=== PATIENT | female | born 2000 | race Caucasian/White ===

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

== ENCOUNTER 2019-09-02 14:01 | Emergency (ER) | payer MEDICAID, SELFPAY ==
[2019-09-02 14:01] VITALS: BP 152/97; PULSE 103; RESP 13; TEMP 36.6; O2SAT 100; BMI 32.2
[2019-09-02 14:26] LABS: Bacteria 0 SEEN /hpf (None Seen); Mucous, Urine 0 SEEN /hpf (<or=2+)
[2019-09-02 14:36] VITALS: BP 152/97; PULSE 92; RESP 16; TEMP 36.6; O2SAT 98
[2019-09-02 14:36] LABS: Color, Urine Yellow (Yellow); Glucose, Dipstick Normal (Normal); Ketone-Dipstick Negative (Negative); Leukocyte Esterase-Dipstick 25 /ul (Negative); Nitrite-Dipstick Negative (Negative); Occult Blood-Urine 250 /ul (Negative); Protein-Dipstick 30 mg/dl (Negative); Urine Bilirubin Dipstick Negative (Negative); Urine Clarity Sl. Cloudy (Clear); Urine Urobilinogen Normal (Normal)
[2019-09-02 14:42] LABS: Absolute Lymphocyte Count 1.83 X10^3/uL (0.83-4.51); Absolute Neutrophil Count 7.6 X10^3/uL (2.0-7.7); Basophil# 0.03 X10^3/uL; Basophil% 0.3 % (0-1); Eosinophil# 0.03 X10^3/uL; Eosinophils% 0.3 % (0-5); Hematocrit 40.4 % (37-47); Lymphocyte # 1.83 X10^3/ul (4.0); Lymphocyte % 18.2 % (19-41); Mean Corp Hgb Conc 32.2 g/dL (32-36); Mean Corpuscular Hgb 30.7 pg (27.0-32.0); Mean Corpuscular Volume 95.3 fL (81-99); Mean Platelet Vol. 9.4 fl (6.2-12.0); Monocyte# 0.57 X10^3/uL; Monocyte% 5.7 % (0-10); NRBC Flagged by Analyzer 0 % (0-5); Neutrophil # 7.58 X10^3/uL (2.7-7.7); Neutrophil % 75.2 % (47-70); Platelet Count 391 K/mm3 (150-450); RBC Distribution Width CV 12.4 % (11.6-14.6); Red Blood Count 4.24 M/mm3 (4.2-5.4); White Blood Count 10.1 K/mm3 (4.4-11.0)
[2019-09-02] MEDS: Ketorolac 30 MG/ML Syringe IV (14:44)
[2019-09-02] MEDS: Ondansetron 4 MG/2 ML Vial IV (14:44)
[2019-09-02] MEDS: 0.9% Normal Saline 1,000 ML 1000 ML IV (14:44)
[2019-09-02 14:45] LABS: Red Blood Cells-Urine 25-50 SEEN /hpf (0-5); Squamous Epithelial Cells - UA 0-5 SEEN /hpf (5-10); White Blood Cells 0-5 SEEN /hpf (0-5)
--- NOTE | 2019-09-02 14:52 | CT_ITS ---
STUDY: CT ABDOMEN AND PELVIS WITHOUT CONTRAST REASON FOR EXAM: Female, 19 years old. Right flank pain. RADIATION DOSAGE (If Supplied By Facility): CTDIvol = ( 12.65 ) mGy, DLP = ( 570.0 ) mGycm TECHNIQUE: Transaxial images were obtained from the dome of the diaphragm to the symphysis pubis without oral contrast, and without intravenous contrast. Sagittal and coronal images were reconstructed. Individualized dose optimization techniques were used for this CT. COMPARISON: None. FINDINGS: The visualized lung bases are unremarkable. The visualized portions of the heart are within normal limits. Normal liver. Normal gallbladder and extrahepatic biliary system. Normal spleen. Normal pancreas. Normal bilateral adrenal glands. 3 mm calculus in the upper pole calyx of the right kidney. 2 tiny punctate calcifications are also seen in the mid and lower pole calyces of the right kidney. I suspect a 3 mm calculus at the right ureterovesical junction. 5.4 mm nonobstructive calculus is seen in the upper pole calyx of the left kidney. Punctate calculus in the mid inferior portion of the left kidney. Normal visualized stomach. Normal small intestine. Normal colon. The appendix is visualized and appears normal. Normal abdominal aorta. Normal inferior vena cava. Normal retroperitoneum. Normal urinary bladder. There is a small umbilical hernia containing fat. Normal osseous structures. CT/Abdomen/Pelvis without Cont IMPRESSION: Nonobstructive bilateral intrarenal calculi. 3 mm calculus is seen at the right ureterovesical junction. Electronically Signed: Davian Dumas, at 15:46 EST , Service support ,
--- NOTE | 2019-09-02 14:53 | ED.DCSUM_ITS ---
History of Present Illness Chief Complaint: Flank Pain Informant: Patient - Abdominal Pain/Flank Pain Onset: Today Context: Gradual Onset Timing: Continuous, Waxes and wanes Quality: Sharp, Stabbing Location: RLQ Current Severity: Mild Maximum Severity: Moderate Worsened by: Nothing Relieved by: Nothing - Nausea/Vomiting/Emesis GI Symptom: Nausea - Diarrhea/Melena/Hematochezia GI Symptom: Negative for: Diarrhea, Melena, Hematochezia Associated Symptoms: Negative for: Dysuria, Frequency, Hematuria, Urgency LMP: 2 months Narrative: Patient is a 19-year-old female with history of kidney stone presenting with flank pain. Patient states she feels pressure in her right lower quadrant as well as diffuse lower back pain. She notes the pain is intermittent and waxes and wanes in intensity. She states it started around 7 AM today. She notes that she is currently on antibiotics, Keflex, for staph skin infection. She also took a fluconazole yesterday for a yeast infection. Patient denies any dysuria, hematuria or vaginal bleeding. She states she is on continuous control and has not appeared in 2 months which is normal for her. She denies any upper abdominal pain. She has some associated nausea and 2 episodes of vomiting overnight. She has normal bowel movements. She denies any fever chills. She denies any other complaints at this time. Past Medical History - Allergies and Home Meds Allergies/Adverse Reactions: Allergies No Known Allergies Allergy (Verified 09/02/19 14:05) Primary Care Physician: Ricardo Peter MD [Primary Care Provider] - Nuno Short MD [STAFF PHYSICIAN] - Past Medical History: - - Kidney stones Surgical History: noncontributory Lives: With Family Smoking Status: Current every day smoker Review of Systems General: Denies: Chills, Fever, Sweats Eyes: Denies: Visual changes - bilaterally, Diplopia ENT: Denies: Rhinorrhea, Sore throat Cardiovascular: Denies: Chest pain, Palpitations Respiratory: Denies: Dyspnea, Cough, Dyspnea on exertion Gastrointestinal: Reports: Abdominal pain - Right flank, Nausea, Vomiting. Denies: Diarrhea, Melena, Hematochezia Genitourinary: Denies: Dysuria, Hematuria, Frequency Musculoskeletal: Reports: Back pain. Denies: Extremity Pain Skin: Denies: Rash, Wounds Neurological: Denies: Headache, Weakness, Numbness Physical Exam Vital Signs/Narrative: Vital Signs Temp Pulse Resp BP Pulse Ox 09/02/19 14:36 97.9 F 92 16 152/97 H 98 09/02/19 14:01 97.9 F 103 H 13 152/97 H 100 Inital Vital Signs reviewed: Yes General: Well nourished, Well developed, No Acute Distress Head: Normocephalic, Atraumatic Eyes: Perrl, EOMI ENT: Moist mucous membranes, No rhinorrhea Neck: Supple, Nontender Cardiovascular: Regular rate, Regular rhythm, No murmurs Respiratory: No distress, CTA bilaterally, Chest nontender Abdomen: Soft, Nontender, Nondistended, Normal bowel sounds, - - No pain at McBurney's point. Negative for: Guarding, Rebound tenderness, Correa's sign Back: Nontender, Normal Inspection. Negative for: CVA tenderness Extremities: Nontender, No edema Skin: Normal color, No rash Neurological: Alert, Oriented x3, Cranial nerves II-XII grossly intact, Normal Strength, Normal Sensation Psychological: Normal affect, Normal Mood Diagnostic/Tx/Re-eval Clinical Impression(s) from Imaging Studies Abdomen/Pelvis CT 09/02/19 14:52 IMPRESSION: Nonobstructive bilateral intrarenal calculi. 3 mm calculus is seen at the right ureterovesical junction. Electronically Signed: Davian Dumas, at 15:46 EST , Service support , Laboratory Data 09/02/19 09/02/19 09/02/19 14:20 14:28 14:30 WBC 10.1 RBC 4.24 Hgb 13.0 Hct 40.4 MCV 95.3 MCH 30.7 MCHC 32.2 RDW Std Deviation 43.0 RDW Coeff of Marino 12.4 Plt Count 391 MPV 9.4 Immature Gran % (Auto) 0.300 Neut % (Auto) 75.2 H Lymph % (Auto) 18.2 L Morehouse % (Auto) 5.7 Eos % (Auto) 0.3 Baso % (Auto) 0.3 Absolute Neuts (auto) 7.6 Absolute Lymphs (auto) 1.83 Nucleated RBC % 0 Sodium Potassium Chloride Carbon Dioxide Anion Gap BUN Creatinine Estim Creat Clear Calc Est GFR (MDRD) Af Amer Est GFR (MDRD) Non-Af BUN/Creatinine Ratio Glucose Calcium Total Bilirubin AST ALT Alkaline Phosphatase Total Protein Albumin Globulin Albumin/Globulin Ratio Lipase Serum , Qual NEGATIVE Urine Color Yellow Urine Clarity Sl. Cloudy Urine pH 7.0 Ur Specific Coldiron 1.010 Urine Protein 30 H Urine Glucose (UA) Normal Urine Ketones Negative Urine Occult Blood 250 H Urine Nitrite Negative Urine Bilirubin Negative Urine Urobilinogen Normal Ur Leukocyte Esterase 25 H Urine RBC 25-50 SEEN Urine WBC 0-5 SEEN Ur Squamous Epith Cells 0-5 SEEN Urine Bacteria 0 SEEN Urine Mucus 0 SEEN 09/02/19 14:30 WBC RBC Hgb Hct MCV MCH MCHC RDW Std Deviation RDW Coeff of Marino Plt Count MPV Immature Gran % (Auto) Neut % (Auto) Lymph % (Auto) Morehouse % (Auto) Eos % (Auto) Baso % (Auto) Absolute Neuts (auto) Absolute Lymphs (auto) Nucleated RBC % Sodium 138 Potassium 4.1 Chloride 106 Carbon Dioxide 25.0 Anion Gap 7 BUN 9 Creatinine 0.84 Estim Creat Clear Calc 83.79 Est GFR (MDRD) Af Amer 110 Est GFR (MDRD) Non-Af 91 BUN/Creatinine Ratio 10.7 Glucose 112 H Calcium 9.1 Total Bilirubin 0.20 AST 10 L ALT 24 Alkaline Phosphatase 88 Total Protein 7.9 Albumin 3.6 Globulin 4.3 H Albumin/Globulin Ratio 0.8 L Lipase 79 Serum , Qual Urine Color Urine Clarity Urine pH Ur Specific Coldiron Urine Protein Urine Glucose (UA) Urine Ketones Urine Occult Blood Urine Nitrite Urine Bilirubin Urine Urobilinogen Ur Leukocyte Esterase Urine RBC Urine WBC Ur Squamous Epith Cells Urine Bacteria Urine Mucus - Medical Decision Making Patient is evaluated for right-sided flank pain and low back pain. She does have a history of kidney stone however her symptoms are little bit atypical for this. CBC and BMP are normal. Urinalysis shows blood but no other signs of infection. CT is obtained which shows a 3 mm stone at the UVJ. Likely this will pass without issue. Patient is given Toradol in the ER with improvement of her symptoms. Patient is given a strainer and referral to urology as this is a subsequent kidney stone. This stone likely explains her symptoms and I do not think she has other processes going on at this time. She is well-appearing and stable for outpatient follow-up. She is discharged home with pain control and nausea control medication. Patient is counseled on signs and symptoms requiring return to the emergency room. Patient verbalizes agreement and understand this plan. Patient discharged home in stable and improved condition. ED Disposition - Plan for ED Patient: Disposition: Home or Assisted Living Diagnosis: Kidney stone on right side Instructions: KIDNEY STONE w/ Colic Prescriptions: Ibuprofen [Motrin] 600 mg PO Q6H PRN PRN #20 tab PRN Reason: Pain Or Fever Prescription Printed Hydrocodone Bitart/Apap 5-325 [[place] 5MG-325MG] 1 tab PO Q6H PRN PRN 2 Days #8 tab PRN Reason: Pain Prescription Printed Ondansetron [Zofran Odt] 4 mg PO Q8H PRN PRN #10 tab PRN Reason: Nausea Prescription Printed Referrals: Ricardo Peter MD [Primary Care Provider] - Nuno Short MD [STAFF PHYSICIAN] - Additional Instructions: Use strainer to try to catch the kidney stone. Return if you have worsening symptoms. Follow-up with urology as this is not a recurrent problem. Drink plenty of water.
[2019-09-02 15:19] LABS: Internal QC Validated? YES +Cl - CLEAR BKGD; Pregnancy, Serum, hCG Quali. NEGATIVE Negative
[2019-09-02 15:21] LABS: ALB/GLOB Ratio 0.8 RATIO (0.9-2.4); AST(SGOT) 10 U/L (15-37); Alanine Aminotransfer ALT/SGPT 24 U/L (13-56); Albumin, Serum 3.6 g/dL (3.2-5.0); Alkaline Phosphatase 88 U/L (45-117); Anion Gap 7 (5-15); BUN 9 mg/dL (7-18); BUN/Creat Ratio 10.7 RATIO (10-20); Calcium,Total 9.1 mg/dL (8.5-10.1); Chloride 106 mmol/L (98-107); Creatinine, Serum 0.84 mg/dL (0.55-1.02); EST Glomerular Filtration Rate 91 mL/min (>60); Est Glom Filt Rate - Afr Amer 110 mL/min (>60); Estimated Creatinine Clearance 83.79 ml/min; Globulin 4.3 g/dL (2.2-4.2); Glucose 112 mg/dL (74-106); Lipase 79 U/L (73-393); Potassium 4.1 mmol/L (3.5-5.1); Protein, Total 7.9 g/dL (6.4-8.2); Sodium Level 138 mmol/L (136-145)
[2019-09-02 16:40] VITALS: BP 138/88; PULSE 78; RESP 17; O2SAT 98
== END 2019-09-02 16:40 | disposition home or self-care (01) ==
PROVIDERS: Emergency Provider Emergency Medicine; Family Provider Family Medicine; PCP Family Medicine
DX: N20.0 Calculus of kidney (principal); L08.9 Local infection of the skin and subcutaneous tissue, unspecified; B95.8 Unspecified staphylococcus as the cause of diseases classified elsewhere; B37.9 Candidiasis, unspecified; Z87.442 Personal history of urinary calculi; Z79.3 Long term (current) use of hormonal contraceptives; F17.200 Nicotine dependence, unspecified, uncomplicated
CPT/HCPCS: 74176; 80053; 81001; 83690; 84703; 85025; 96361; 96374; 96375; 99283; J2405

== ENCOUNTER → 2019-09-30 09:57 | Outpatient (CLI) | payer MEDICAID, SELFPAY ==
[2019-09-02 14:01] VITALS: BMI 32.2
--- NOTE | 2019-09-30 09:58 | ECHOD_ITS ---
Reason For Study: MURMUR Procedure This was a 2D Doppler, Color Flow transthoracic echocardiogram. Exam performed in department. Left Ventricle Normal LV size. The estimated ejection fraction is 60 %. No evidence for diastolic dysfunction. No regional wall motion abnormalities noted. Right Ventricle Normal RV size. Normal systolic function. Atria Normal left atrium. Normal right atrium. No doppler evidence for ASD. Mitral Valve There is no mitral valve stenosis. No mitral valve insufficiency. Tricuspid Valve There is no tricuspid stenosis. Trivial tricuspid valve insufficiency. Unable to estimate RV systolic pressure due to insufficient tricuspid regurgitant envelope. Aortic Valve Trisinus/trileaflet aortic valve. There is no aortic stenosis. No aortic valve insufficiency. Pulmonic Valve There is no pulmonic valvular stenosis. No pulmonic valve insufficiency. Great Vessels Normal aortic root. Pericardium/Pleural No pericardial effusion. MMode/2D Measurements & Calculations LVIDd: 4.2 cm IVSd: 0.65 cm Ao root diam: 2.5 cm LVIDs: 2.7 cm LVPWd: 0.80 cm RVDd: 2.2 cm FS: 37.1 % LAV(MOD-bp): 28.3 ml LA A4 area: 11.8 cm2 LA dimension(2D): 2.1 cm LAV(MOD-bp) Indexed: 15.8 ml/m2 LAV(MOD-sp2): 27.1 ml LAV(MOD-sp4): 27.5 ml RA A4 area: 8.4 cm2 Time Measurements MV dec time: 0.20 sec Doppler Measurements & Calculations MV E max evelio: 65.2 cm/sec Lat Peak E' Evelio: 16.3 cm/sec Med Peak E' Evelio: 13.3 cm/sec MV A max evelio: 50.6 cm/sec E/E' lat: 4.0 E/E' med: 4.9 MV E/A: 1.3 Ao V2 max: 127.9 cm/sec LV V1 max: 106.8 cm/sec PA V2 max: 88.4 cm/sec Ao max P.5 mmHg LV V1 max P.6 mmHg TR max evelio: 218.4 cm/sec TR max P.1 mmHg Interpretation Summary The estimated ejection fraction is 60 %. No evidence for diastolic dysfunction. Trivial tricuspid valve insufficiency. Ordering Physician: Michel Vasquez Referring Physician: Humza Peter Performed By: Stephania Valadez RDCS, RVT
== END ==
PROVIDERS: Family Provider Family Medicine; PCP Family Medicine; Referring Provider Family Medicine; Visit Provider Family Medicine
DX: R01.2 Other cardiac sounds (principal)
CPT/HCPCS: 93306

== ENCOUNTER → 2020-02-17 18:04 | Outpatient (CLI) | payer MEDICAID, SELFPAY ==
--- NOTE | 2020-02-17 18:17 | US_ITS ---
STUDY: RENAL ULTRASOUND - COMPLETE REASON FOR EXAM: Female, 19 years old. Back pain. History of renal calculi. TECHNIQUE: Ultrasound evaluation of the kidneys was performed with real-time and static miramontes-scale imaging. COMPARISON: CT of the abdomen and pelvis, September 02, 2019. FINDINGS: RIGHT KIDNEY: Normal location of the right kidney, which is normal in size. The right kidney measures 10.6 cm. There is a normal cortex of the right kidney. The renal cortex measures 1.3 cm. There is no right renal mass or cyst. There are no right renal calculi. There is no right hydronephrosis. DISTAL RIGHT URETER: There is non-visualization of the distal right ureter. There is no demonstrated right ureterovesical junction calculus. There is no demonstrated right ureteral jet. LEFT KIDNEY: Normal location of the left kidney, which is normal in size. The left kidney measures 10.1 cm. There is a normal cortex of the left kidney. The renal cortex measures 1.6 cm. There is no left renal mass or cyst. There are multiple small echogenic foci thought to represent renal calculi. Largest measures 7 mm and lies in the mid kidney. There is no left hydronephrosis. DISTAL LEFT URETER: There is non-visualization of the distal left ureter. There is no demonstrated left ureterovesical junction calculus. There is no demonstrated left ureteral jet. BLADDER: The distended urinary bladder has a volume of 30 ml. There is a normal wall thickness of the distended urinary bladder. There is a 2 mm filling defect along the left floor of the urinary bladder of unknown etiology. There are no demonstrated bladder calculi. US/Kidney and Bladder IMPRESSION: 1. Multiple nonobstructing left renal calculi. 2. Normal right kidney. 3. Question small filling defect stone versus polyp in the left floor of the urinary bladder. Electronically Signed: Zachary Marcum DO at 19:27 EDT Tel [phone], Service support ,
== END ==
PROVIDERS: PCP Family Medicine; Referring Provider Urology; Visit Provider Urology
DX: N20.0 Calculus of kidney (principal); M54.5 Low back pain
CPT/HCPCS: 76770

== ENCOUNTER → 2020-03-30 14:00 | Outpatient (CLI) | payer MEDICAID, SELFPAY ==
--- NOTE | 2020-03-30 14:02 | RAD_ITS ---
STUDY: X-RAY - ABDOMEN/PELVIS REASON FOR EXAM: Female, 19 years old. LEFT SIDED KIDNEY STONE TECHNIQUE: Single AP view of the abdomen / pelvis. COMPARISON: None. FINDINGS: Normal visualized lung bases. There is a moderate amount of colonic fecal material. I suspect an 8 mm calculus in the lower pole calyx of the left kidney. Normal soft tissue structures. Normal visualized osseous structures. RAD/Abdomen Single View IMPRESSION: I suspect an 8 mm calculus in the lower pole calyx of the left kidney. Electronically Signed: Davian Dumas, at 15:25 EDT , Service support ,
== END ==
PROVIDERS: PCP Family Medicine; Referring Provider Urology; Visit Provider Urology
DX: N20.0 Calculus of kidney (principal)
CPT/HCPCS: 74018

== ENCOUNTER → 2020-04-05 11:28 | Outpatient (CLI) | payer MEDICAID, SELFPAY ==
[2020-04-05 11:57] LABS: Color, Urine Yellow (Yellow); Glucose, Dipstick Normal (Normal); Ketone-Dipstick Negative (Negative); Leukocyte Esterase-Dipstick Negative /ul (Negative); Nitrite-Dipstick Negative (Negative); Occult Blood-Urine 10 /ul (Negative); Protein-Dipstick Negative (Negative); Urine Bilirubin Dipstick Negative (Negative); Urine Clarity Sl. Cloudy (Clear); Urine Urobilinogen Normal (Normal)
== END ==
PROVIDERS: PCP Family Medicine; Visit Provider Urology
DX: N39.0 Urinary tract infection, site not specified (principal)
CPT/HCPCS: 81002; 87086; 87088

== ENCOUNTER 2020-04-11 08:19 | Day surgery (SDC) | payer MEDICAID, SELFPAY ==
[2020-04-11] VITALS (9 sets, daily range): BP systolic 119–150; BP diastolic 72–109; PULSE 72–103; RESP 14–16; TEMP 36.1–36.5; O2SAT 96–100; BMI 31.3
--- NOTE | 2020-04-11 08:38 | PCM.HP.STD ---
Problem List (1) Renal calculus, left Status: Acute History of Present Illness Date of Admission: 04/11/20 Chief Complaint: left flank pain and stones The patient is a 19 year old F who had acute onset left flank pain and was diagnosed with left renal stones. She now presents for treatment with extracorporeal shockwave lithotripsy. The risks benefits and alternatives were discussed including that of COVID 19 and possible complications. She understands and desires to proceed. Past Medical History Allergies No Known Allergies Allergy (Verified 04/04/20 08:07) Home Medications: Ambulatory Orders Medication Instructions Recorded Ibuprofen [Motrin] 600 mg PO Q6H PRN PRN #20 tab 09/02/19 Norethindrone-Ethinyl Estrad 1 ea PO DAILY 09/02/19 [Pirmella] Spironolactone [Aldactone] 50 mg PO BID 04/04/20 Surgical History: noncontributory Smoking Status: Current every day smoker Tobacco Use: Cigarettes Review of Systems Constitutional: Denies: Anorexia, Chills, Fever Eyes: Denies: Vision Change HEENT: Denies: Difficulty Hearing, Difficulty Swallowing, Visual Changes Cardiovascular: Denies: Chest Pain, Chest Pressure, Chest Tightness Respiratory: Denies: Cough, Shortness of Breath Gastrointestinal: Reports: - - left flank pain. Denies: Abdominal Pain, Nausea, Vomiting Genitourinary: Denies: Dysuria, Incontinence Gynecological: Denies: Vaginal itching Musculoskeletal: Denies: Muscle pain Skin: Denies: Wounds Neurological: Denies: Balance problems, Difficulty swallowing VTE Information - Inpt Only VTE Present on Admission: Yes VTE Mechan Device Prophylaxis: SCD's VTE Pharm Prophylaxis ordered?: No Reason prophylaxis not ordered:: Treatment Not Indicated Patient Problems: Active and Suspected Problems Renal calculus, left (Acute) - Physical Exam Vitals/I&O's: Body Mass Index (BMI) 32.2 General: Alert, Oriented x3, Cooperative, No apparent distress HEENT: Atraumatic, Normocephalic Oral: Moist Mucosa Neck: Supple, Trachea Midline Lungs: Clear to auscultation, Normal air movement Cardiovascular: Regular rate, Regular Rhythm Abdomen: Soft, Non Tender, Non-Distended Skin: No rashes Musculoskeletal: No Muscle Wasting Neurological: Cranial nerves II-XII grossly intact Psych/Mental Status: Normal Affect, Alert and oriented to time, place, person, mood and affect Current Medications Cefazolin Sodium 2 gm/ Sodium (Chloride) 110 mls @ 150 mls/hr IV PREOP ONE Stop: 04/11/20 09:33 Assessment/Plan All Active Problems Post-dates (Acute) Oligohydramnios antepartum (Acute) History of miscarriage, currently (Acute) Asthma (Acute) Renal calculus, left (Acute) left renal extracorporeal shockwave lithotripsy Procedure Criteria Procedure Type: Elective Procedure Essential: Yes Criteria Statement: On 01/04/2020 the [facility] of Health ([facility]) Public Order signed by [facility] Director Marion Romero M.D., regarding the Management of Non-Essential Surgeries and Procedures for the purpose of preserving Personal Protective Equipment (PPE) and critical hospital capacity and resources within [place] went into effect as of 01/05/2020 at 5:00PM. According to the [facility] Public Order: This action will remain in full force and effect until the State of Emergency declared by the Governor no longer exists or the Director of the [facility] rescinds or modifies this Order. This [facility] order stated all non-essential or elective surgeries and procedures that utilize PPE should be delayed unless there is undue risk to the current or future health of a patient. After reviewing the aforementioned [facility] Public Order and the patient's clinical case, I have determined that the scheduled procedure meets the criteria to go forward. Risk to Patient if Procedure Delayed: Presence of severe symptoms causing an inability to perform ADL's - increasing left flank pain COVID Risk Discussion: The surgeon/proceduralist and patient have discussed in detail the risk of exposure to and/or potential harm posed by the COVID-19 virus with having a surgery/procedure at this time versus the risk of delaying the surgery/procedure. It is not possible to know either the risk of delaying the surgery or procedure or chance of getting an infection with perfect accuracy, but a joint decision was made between the patient and the surgeon/proceduralist to proceed at this time with the scheduled surgery/procedure as indicated on the consent form.
--- NOTE | 2020-04-11 08:41 | PCM.OPRPT ---
Problem List (1) Renal calculus, left Status: Acute Report of Operation Date of Procedure: 04/11/20 Pre-Operative Diagnosis: left renal stones Post-Operative Diagnosis: same Surgery/Procedure Performed:: left extracorporeal shockwave lithotripsy Type of Anesthesia:: General Specimen's removed: none Description of Procedure: The patient is a 19-year-old female with a left renal calculus who is having intermittent flank pain. She presents for definitive management of her stone. Risks benefits and alternatives were discussed including that of the current COVID-19 virus. She understands and agrees to proceed. The patient was taken to the operating room and placed on the operating room table. Anesthesia monitored the head, neck, airway, IV access and vital signs throughout the case. Once anesthesia was apparently administered, the patient was aligned with the lithotripter. The stone was identified and shocked with 2500 shocks. It appeared to be well fragmented at the conclusion of the case. The patient was then awakened and taken to the recovery room in good condition. There were no complications during this procedure. Grafts/Implants Used: none - Complications none - Admit VTE Documentation VTE Present on Admission: Yes VTE Mechan Device Prophylaxis: SCD's VTE Pharm Prophylaxis ordered?: No Reason prophylaxis not ordered:: Treatment Not Indicated
--- NOTE | 2020-04-11 08:43 | PCM.DC.URO ---
Discharge Diet: No Restrictions Discharge Activity: May not drive while taking narcotic pain medications., May Shower May resume sexual activity in: No Restrictions Call your doctor if you observe: Fever of 101 or Higher, Inability to urinate, Inability to have a bowel movement, Calf discomfort, Uncontrolled pain Allergies/Adverse Reactions: Allergies No Known Allergies Allergy (Verified 04/04/20 08:07) Medications to take at Discharge Ibuprofen [Motrin] 600 mg PO Q6H PRN PRN #20 tab 09/02/19 Norethindrone-Ethinyl Estrad [Pirmella] 1 ea PO DAILY 09/02/19 Spironolactone [Aldactone] 50 mg PO BID 04/04/20 Orders to be completed after discharge: ,Urine Time Frame: 04/11/20, Facility: [facility], Location: Laboratory Primary Care Physician: Ricardo Peter MD [Primary Care Provider] - Test Results: Test results from this visit will be discussed in further detail at your follow-up appointment, if applicable. Please Follow Up With: Mary Brown MD When: call office for appt and instructions Proposed Discharge Date: 04/11/20
[2020-04-11] MEDS: Lactated Ringers 1,000 ML 100 ML IV (08:58)
[2020-04-11 09:37] LABS: Internal QC Validated? YES +Cl - CLEAR BKGD; Pregnancy, Urine Negative Negative
[2020-04-11] MEDS: Cefazolin 2 GM in 0.9% Normal Saline 100 ML IV (09:42)
[2020-04-11] MEDS: HYDROcodone Bitartrate/Apap 5/325 Tablet PO (11:54)
== END 2020-04-11 12:53 | disposition home or self-care (01) ==
LOC: SDC 08:20 → AC 08:21
PROVIDERS: Anesthesiology; PCP Family Medicine; Referring Provider Urology; Visit Provider Urology
PROC: (CPT 50590; principal; 2020-04-11 08:40)
DX: N20.0 Calculus of kidney (principal); Z11.59 Encounter for screening for other viral diseases; J45.909 Unspecified asthma, uncomplicated; F17.210 Nicotine dependence, cigarettes, uncomplicated
CPT/HCPCS: 50590; 81025; 87635; G2023; J7120; J2405; U0003

== ENCOUNTER 2020-04-12 20:02 | Emergency (ER) | payer MEDICAID, SELFPAY ==
[2020-04-11 08:38] VITALS: BMI 31.3
[2020-04-12 20:03] VITALS: BP 134/75; PULSE 80; RESP 16; TEMP 36.6; O2SAT 98; BMI 31.6
--- NOTE | 2020-04-12 20:17 | ED.VIS.GEN ---
History of Present Illness Chief Complaint: Other, Pain/Inj Detail of Chief Complaint: Left flank pain Informant: Patient Onset: Yesterday Current Severity: Mild Maximum Severity: Moderate Narrative: Patient presents with left flank pain. She had lithotripsy performed yesterday with Dr. Brown. She is currently on Scheller and Pyridium. She did take ibuprofen [address] Brown sent her in secondary to continued pain. Patient states pain is currently a 4 and seems to have subsided somewhat. - Past Medical History (1) Asthma Status: Chronic (2) Renal calculus, left Status: Chronic Past Medical History - Allergies and Home Meds Allergies/Adverse Reactions: Allergies No Known Allergies Allergy (Verified 04/04/20 08:07) Primary Care Physician: Ricardo Peter MD [Primary Care Provider] - Prior records reviewed: Yes Surgical History: noncontributory Lives: Spouse/ Significant Other Smoking Status: Current every day smoker Review of Systems General: Denies: Chills, Fever Eyes: Denies: Visual changes - bilaterally ENT: Denies: Bilateral ear pain Cardiovascular: Denies: Chest pain Respiratory: Denies: Dyspnea, Cough Gastrointestinal: Reports: Abdominal pain - Left flank. Denies: Nausea, Vomiting, Diarrhea Genitourinary: Denies: Dysuria Musculoskeletal: Denies: Extremity Pain Skin: Denies: Rash Neurological: Denies: Headache Hematologic: Denies: Easy bruising, Easy bleeding Allergy: Denies: Uticaria Physical Exam Vital Signs/Narrative: Vital Signs Temp Pulse Resp BP Pulse Ox 04/12/20 20:03 97.8 F 80 16 134/75 H 98 Inital Vital Signs reviewed: Yes General: Well nourished, Well developed Head: Normocephalic ENT: Moist mucous membranes Neck: Supple Cardiovascular: Regular rate, Regular rhythm Respiratory: No distress, CTA bilaterally Abdomen: Soft, Nontender Back: CVA tenderness - Left CVA tenderness Extremities: Nontender Skin: Normal color, No rash Neurological: Alert, Oriented x3 Psychological: Normal affect Diagnostic/Tx/Re-eval Impressions KUB X-Ray 04/12/20 20:20 IMPRESSION: Multiple faint bilateral nephroliths. No ureter stones are visible. Electronically Signed: Mayur Ledesma MD at 20:38 EDT Tel , Service support , 04/12/20 20:20 KUB [Abdomen Single View] [RAD] Stat Laboratory Results 04/12/20 20:45 Urine Color Red Urine Clarity Sl. Cloudy Urine pH 6.5 Ur Specific [place] 1.020 Urine Protein 100 H Urine Glucose (UA) Normal Urine Ketones Negative Urine Occult Blood 150 H Urine Nitrite Positive H Urine Bilirubin 6 H Urine Urobilinogen 4 H Ur Leukocyte Esterase Negative Urine RBC > 100 SEEN Urine WBC 0-5 SEEN Ur Squamous Epith Cells 0-5 SEEN Urine Bacteria 1+ Urine Mucus 0 SEEN - Medical Decision Making She was given a dose of oxycodone and Flomax here. While in the emergency room she passed a stone with bloody urine. On repeat evaluation she is resting more comfortably. She will continue her Scheller and Pyridium along with her antibiotics. She will be given a prescription for Flomax. ED Disposition - Plan for ED Patient: Disposition: Home or Assisted Living Diagnosis: Ureterolithiasis Instructions: ED Renal Stone w Colic Prescriptions: Tamsulosin HCl [Flomax] 0.4 mg PO DAILY #7 cap Transmission Status: Pending to [id number] Referrals: Mary Brown MD [STAFF PHYSICIAN] - [facility] appointment
--- NOTE | 2020-04-12 20:20 | RAD_ITS ---
STUDY: X-RAY - ABDOMEN/PELVIS REASON FOR EXAM: Female, 19 years old. LITHOTRIPSY YESTERDAY, FLANK PAIN TECHNIQUE: Two AP supine views of the abdomen and pelvis. COMPARISON: None. FINDINGS: Normal visualized lung bases. There is an unremarkable bowel gas pattern. There is no demonstrated free abdominal air. Multiple faint bilateral nephroliths. No ureter stones are visible. Normal soft tissue structures. Normal visualized osseous structures. RAD/Abdomen Single View IMPRESSION: Multiple faint bilateral nephroliths. No ureter stones are visible. Electronically Signed: Mayur Ledesma MD at 20:38 EDT Tel , Service support ,
[2020-04-12] MEDS: oxyCODONE 5 MG Tablet PO (20:26)
[2020-04-12] MEDS: Tamsulosin HCl 0.4 MG Capsule PO (20:26)
--- NOTE | 2020-04-12 20:50 | ED.RN ---
pt stated she passed a stone in the toilet when getting the urine spec.
[2020-04-12 20:52] LABS: Mucous, Urine 0 SEEN /hpf (<or=2+)
[2020-04-12 20:55] LABS: Color, Urine Red (Yellow); Glucose, Dipstick Normal (Normal); Ketone-Dipstick Negative (Negative); Leukocyte Esterase-Dipstick Negative /ul (Negative); Nitrite-Dipstick Positive (Negative); Occult Blood-Urine 150 /ul (Negative); Protein-Dipstick 100 mg/dl (Negative); Urine Clarity Sl. Cloudy (Clear); Urine Urobilinogen 4 mg/dl (Normal); Urine pH 6.5 (5.0 - 8.0)
[2020-04-12 21:07] LABS: Bacteria 1+ /hpf (None Seen); Red Blood Cells-Urine > 100 SEEN /hpf (0-5); Squamous Epithelial Cells - UA 0-5 SEEN /hpf (5-10); Urine Bilirubin Dipstick 6 mg/dL (Negative); White Blood Cells 0-5 SEEN /hpf (0-5)
[2020-04-12 21:27] VITALS: BP 129/72; PULSE 72; RESP 16; O2SAT 97
== END 2020-04-12 21:29 | disposition home or self-care (01) ==
PROVIDERS: Emergency Provider Emergency Medicine; PCP Family Medicine
DX: N20.1 Calculus of ureter (principal); J45.909 Unspecified asthma, uncomplicated; Z87.442 Personal history of urinary calculi; F17.200 Nicotine dependence, unspecified, uncomplicated
CPT/HCPCS: 74018; 81001; 99283

== ENCOUNTER → 2020-05-03 14:32 | Outpatient (CLI) | payer MEDICAID, SELFPAY ==
[2020-04-12 20:03] VITALS: BMI 31.6
--- NOTE | 2020-05-03 14:34 | RAD_ITS ---
STUDY: X-RAY - ABDOMEN/PELVIS REASON FOR EXAM: Female, 19 years old. Postop left kidney stone. TECHNIQUE: Single AP view of the abdomen / pelvis. COMPARISON: 04/12/2020 FINDINGS: There is no bowel obstruction. There is air and stool to the level of the rectum. There is mild constipation. There are no definite urinary calculi identified. The visualized osseous structures are within normal limits. RAD/Abdomen Single View IMPRESSION: No bowel obstruction. Mild constipation. No definite urinary calculi identified. Electronically Signed: Jm Guevara, at 16:54 EDT Tel , Service support ,
== END ==
PROVIDERS: PCP Family Medicine; Referring Provider Urology; Visit Provider Urology
DX: N20.0 Calculus of kidney (principal)
CPT/HCPCS: 74018

== ENCOUNTER 2020-08-17 07:06 | Day surgery (SDC) | payer MEDICAID, SELFPAY ==
[2020-08-17] VITALS (7 sets, daily range): BP systolic 114–134; BP diastolic 72–85; PULSE 80–105; RESP 16; TEMP 36.4–36.7; O2SAT 97–100; BMI 31.0
[2020-08-17 07:31] LABS: Internal QC Validated? YES +Cl - CLEAR BKGD; Pregnancy, Urine Negative Negative
[2020-08-17] MEDS: Lactated Ringers 1,000 ML 100 ML IV (07:40)
--- NOTE | 2020-08-17 07:45 | RAD_ITS ---
HISTORY: INTERSTIM THERAPY 1, RIGHT SIDE EXAM: Pelvis COMPARISON: Abdominal x-ray of May 03, 2020 FINDINGS: # of images incl. paperwork: 3 Spot fluoroscopic localization of the about S4 segment on the lateral image. Right paraspinous on the frontal image. The lead terminates ventral to the sacrum. RAD/Pelvis 1 or 2 Views IMPRESSION: Localization of the presacral space through the sacrum at about S4 at 0531 Reported and signed by: Uriel Wolff MD Electronically Signed: Uriel Wolff MD at 5:30 EDT Tel , Service support ,
[2020-08-17] MEDS: Vancomycin IV 1,000 MG/200 ML BAG 200 MG IV (08:19)
--- NOTE | 2020-08-17 09:13 | OP.PCM_ITS ---
Problem List (1) Urinary urgency Status: Acute (2) Urinary frequency Status: Acute Report of Operation Date of Procedure: 08/17/20 Pre-Operative Diagnosis: Urinary urgency and frequency Post-Operative Diagnosis: Same Surgery/Procedure Performed:: Interstim stage I Type of Anesthesia:: MAC Description of Procedure: Patient is a 20-year-old female with refractory urinary urgency and frequency. She has failed conservative medical management and now presents for third level intervention. She has undergone urodynamics and cystoscopy in the past. Informed consent was obtained including a discussion of the risks of COVID-19. Patient was taken to the operating room and placed in a prone position on the operating room table. All dependent portions of her body were appropriately padded and secured to the table. Anesthesia monitored the head, neck, airway, IV access and vital signs throughout the case. Once anesthesia was appropriate ministered the patient was prepped and draped in usual sterile fashion. Using fluoroscopic visualization, the S3 foramen was identified. The overlying skin and tissue was infiltrated with lidocaine. The needle was then inserted through the S3 foramen and good stimulation with matty and no great toe flexion was achieved. The obturator of the needle was removed and the guidewire was inserted. The skin incision was made and this was then dilated. The lead was then placed into the S3 foramen and positioning was confirmed using fluoroscopy. Good responses were achieved on all 4 leads. The lead was then tunneled into the pocket site which was made using a knife, Bovie cautery and blunt dissection. The lead extension was tunneled from the contralateral side, and t he lead was inserted secured with a torque wrench. A loop was made in the lead extension and was sutured into place using Prolene. This was then buried into the pocket site. The incision sites were closed using 3-0 interrupted Vicryl followed by 4-0 subcuticular suturing and Dermabond. The lead extension was attached to the temporary battery and the dressing was applied to her back. She was awakened and taken to the recovery room in good condition. There were no complications during the procedure. Grafts/Implants Used: Interstim lead and lead extension - Complications none - Admit VTE Documentation VTE Present on Admission: No VTE Mechan Device Prophylaxis: None VTE Pharm Prophylaxis ordered?: No Reason prophylaxis not ordered:: Treatment Not Indicated
--- NOTE | 2020-08-17 09:19 | DCINST_ITS ---
Discharge Diet: No Restrictions Discharge Activity: May not drive while taking narcotic pain medications., May Not Shower, - - No shower, no tub bathing, keep dressing dry and clean. Avoid lifting, stretching and exercising. May resume sexual activity in: 3 weeks Call your doctor if your incision/area has: Continuous Slow Oozing, Sudden Increased Bleeding, Increased Pain/ Swelling, Increased Redness, Foul Smelling Discharge, Swelling at the incision site Call your doctor if you observe: Fever of 101 or Higher, Inability to urinate, Inability to have a bowel movement Allergies/Adverse Reactions: Allergies No Known Allergies Allergy (Verified 08/08/20 09:22) Medications to take at Discharge Norethindrone-Ethinyl Estrad [Pirmella 1-35-28 Tablet] 1 ea PO QHS 09/02/19 Spironolactone [Aldactone] 50 mg PO QHS 04/04/20 Docusate Sodium [Colace] 100 mg PO BID PRN PRN 08/08/20 Mirabegron [Myrbetriq] 50 mg PO BID 08/08/20 Tamsulosin HCl [Flomax] 0.4 mg PO DAILY PRN 08/08/20 Cephalexin [Keflex] 500 mg PO Q12 3 Days #6 cap 08/17/20 Oxycodone HCl/Acetaminophen [Percocet 5/325] 2 tablet PO Q8H PRN PRN 7 Days #20 tablet 08/17/20 The following prescriptions were given: Cephalexin [Keflex] 500 mg PO Q12 3 Days #6 cap Transmission Status: Pending to [id number] Oxycodone HCl/Acetaminophen [Percocet 5/325] 2 tablet PO Q8H PRN PRN 7 Days #20 tablet PRN Reason: Pain Transmission Status: Sent to [id number] Primary Care Physician: Ricardo Peter MD [Primary Care Provider] - Test Results: Test results from this visit will be discussed in further detail at your follow- up appointment, if applicable. Please Follow Up With: Mary Brown MD When: call for appt to be seen next week Proposed Discharge Date: 08/17/20
[2020-08-17] MEDS: Cefazolin 2 GM in 0.9% Normal Saline 100 ML IV (09:27)
== END 2020-08-17 11:13 | disposition home or self-care (01) ==
LOC: SDC 07:06 → AC 07:07
PROVIDERS: Anesthesiology; PCP Family Medicine; Referring Provider Urology; Visit Provider Urology
PROC: (CPT 64581; principal; 2020-08-17 08:40)
DX: R35.0 Frequency of micturition (principal); R39.15 Urgency of urination; K59.09 Other constipation; J45.909 Unspecified asthma, uncomplicated; Z87.442 Personal history of urinary calculi; F17.200 Nicotine dependence, unspecified, uncomplicated
CPT/HCPCS: 00630; 64581; 64590; 72170; 76000; 81025; 87635; C9803; J7120; J2405; U0003

== ENCOUNTER 2020-08-31 07:39 | Day surgery (SDC) | payer MEDICAID, SELFPAY ==
[2020-08-17 07:31] VITALS: BMI 31.0
[2020-08-31] VITALS (9 sets, daily range): BP systolic 104–123; BP diastolic 63–80; PULSE 60–86; RESP 14–16; TEMP 36.2–37.1; O2SAT 98–100; BMI 31.1
[2020-08-31 08:06] LABS: Internal QC Validated? YES +Cl - CLEAR BKGD; Pregnancy, Urine Negative Negative
[2020-08-31] MEDS: Lactated Ringers 1,000 ML 100 ML IV (08:44)
[2020-08-31] MEDS: Vancomycin IV 1,000 MG/200 ML BAG 200 MG IV (08:45)
--- NOTE | 2020-08-31 09:21 | PCM.DC.URO ---
Discharge Diet: No Restrictions Discharge Activity: May not drive while taking narcotic pain medications., May Shower - tomorrow May resume sexual activity in: 1 week Call your doctor if your incision/area has: Continuous Slow Oozing, Sudden Increased Bleeding, Increased Pain/ Swelling, Increased Redness, Foul Smelling Discharge, Swelling at the incision site Call your doctor if you observe: Fever of 101 or Higher, Inability to urinate, Inability to have a bowel movement Allergies/Adverse Reactions: Allergies No Known Allergies Allergy (Verified 08/21/20 13:31) Medications to take at Discharge Norethindrone-Ethinyl Estrad [Pirmella 1-35-28 Tablet] 1 ea PO QHS 09/02/19 Spironolactone [Aldactone] 50 mg PO QHS 04/04/20 Docusate Sodium [Colace] 100 mg PO BID PRN PRN 08/08/20 Mirabegron [Myrbetriq] 50 mg PO BID 08/08/20 Tamsulosin HCl [Flomax] 0.4 mg PO DAILY PRN 08/08/20 Cephalexin [Keflex] 500 mg PO Q12 3 Days #6 cap 08/31/20 Oxycodone HCl/Acetaminophen [Percocet 5/325] 1 tablet PO Q8H PRN PRN 7 Days #10 tablet 08/31/20 The following prescriptions were given: Cephalexin [Keflex] 500 mg PO Q12 3 Days #6 cap Transmission Status: Pending to [id number] Oxycodone HCl/Acetaminophen [Percocet 5/325] 1 tablet PO Q8H PRN PRN 7 Days #10 tablet PRN Reason: Pain Transmission Status: Sent to [id number] Primary Care Physician: Ricardo Peter MD [Primary Care Provider] - Test Results: Test results from this visit will be discussed in further detail at your follow-up appointment, if applicable. Please Follow Up With: Mary Brown MD When: call office for appt next week Proposed Discharge Date: 08/31/20
--- NOTE | 2020-08-31 09:22 | PCM.OPRPT ---
Problem List (1) Urinary urgency Status: Acute (2) Urinary frequency Status: Acute Report of Operation Date of Procedure: 08/31/20 Pre-Operative Diagnosis: Urinary urgency, urinary frequency Post-Operative Diagnosis: Same Surgery/Procedure Performed:: InterStim stage II Type of Anesthesia:: MAC Specimen's removed: none Estimated Blood Loss (mL): 3cc Description of Procedure: The patient is a 20-year-old female who has undergone a successful InterStim stage I trial for the last 2 weeks. She now presents for definitive implantation of her [employer] IPG. Informed consent was obtained including a discussion of the risks of COVID-19. She was taken to the operating room and placed on the operating room table in a prone position. All dependent portions of her body were appropriately padded and secured to the table. Anesthesia monitored the head neck, airway, IV access and vital signs throughout the case. Once anesthesia was appropriate ministered the patient was prepped and draped in usual sterile fashion. The incision from the stage I trial was infiltrated with 1% lidocaine with epinephrine for hemostatic control. The incision was gently opened using hemostats and Metzenbaums. The boot was identified and brought into the operative field. The lead extension was removed from the lead using the torque wrench. The lead extension was cut and removed from the field. The pocket was opened using blunt dissection and cautery for hemostatic control. The lead was dried and inserted into the IPG and secured using the torque wrench. The IPG was then placed in the pocket which was closed in 2 layers using 3-0 Vicryl interrupted followed by 4-0 subcuticular. The system was checked for impedances which were found to be none. The incision was then closed with Dermabond. The patient was awakened and taken to the recovery room in good condition. There were no complications during the procedure. Grafts/Implants Used: IPG, Medtronics - Complications none - Admit VTE Documentation VTE Present on Admission: Yes VTE Mechan Device Prophylaxis: SCD's VTE Pharm Prophylaxis ordered?: No Reason prophylaxis not ordered:: Treatment Not Indicated
== END 2020-08-31 11:16 | disposition home or self-care (01) ==
LOC: SDC 07:40 → AC 07:40
PROVIDERS: Anesthesiology; PCP Family Medicine; Referring Provider Urology; Visit Provider Urology
PROC: (CPT 64581; principal; 2020-08-31 10:00)
DX: R35.0 Frequency of micturition (principal); R39.15 Urgency of urination; Z11.59 Encounter for screening for other viral diseases; J45.909 Unspecified asthma, uncomplicated; Z87.442 Personal history of urinary calculi
CPT/HCPCS: 00630; 64581; 64590; 81025; 87426; C9803; J7120; C1767; J2405

== ENCOUNTER → 2021-01-09 12:27 | Outpatient (CLI) | payer MEDICAID, SELFPAY ==
[2020-08-31 08:30] VITALS: BMI 31.1
--- NOTE | 2021-01-09 12:29 | CT_ITS ---
STUDY: CT ABDOMEN AND PELVIS WITHOUT CONTRAST REASON FOR EXAM: Female, 20 years old. RENAL CALCULUS,FLANK PAIN,BACK PAIN. Left flank pain. History of kidney stones. RADIATION DOSAGE (If Supplied By Facility): CTDIvol = ( 8.44 ) mGy, DLP = ( 378.8 ) mGycm TECHNIQUE: Transaxial images were obtained from the dome of the diaphragm to the symphysis pubis without oral contrast, and without intravenous contrast. Sagittal and coronal images were reconstructed. Individualized dose optimization techniques were used for this CT. COMPARISON: Comparison is made with prior study dated 09/02/2019. FINDINGS: The visualized lung bases are unremarkable. The visualized portions of the heart are within normal limits. Normal liver. The gallbladder is contracted. Normal spleen. Normal pancreas. Normal bilateral adrenal glands. Small bilateral nonobstructive intrarenal calculi. Normal visualized stomach. Normal small intestine. Normal colon. The appendix is visualized and appears normal. Normal abdominal aorta. Normal inferior vena cava. Normal retroperitoneum. Normal urinary bladder. Normal abdominal wall. Normal osseous structures. CT/Abdomen/Pelvis without Cont IMPRESSION: Small bilateral nonobstructive intrarenal calculi. Electronically Signed: Davian Dumas MD at 13:04 EDT , Service support ,
== END ==
PROVIDERS: PCP Student in an Organized Health Care Education/Training Program; Referring Provider Urology; Visit Provider Urology
DX: N20.0 Calculus of kidney (principal); M54.5 Low back pain; R10.9 Unspecified abdominal pain
CPT/HCPCS: 74176

== ENCOUNTER 2024-03-31 13:22 | Emergency (ER) | payer BC, SELFPAY ==
[2024-03-31 13:23] VITALS: BP 136/101; PULSE 91; RESP 14; TEMP 36.5; O2SAT 100; BMI 30.2
--- NOTE | 2024-03-31 14:02 | US_ITS ---
STUDY: RENAL ULTRASOUND - COMPLETE REASON FOR EXAM: Female, 23 years old. L flank pain, TECHNIQUE: Ultrasound evaluation of the kidneys was performed with real-time and static miramontes-scale imaging. COMPARISON: Comparison with prior examination dated February 17, 2020. FINDINGS: RIGHT KIDNEY: Normal location of the right kidney, which is normal in size. The right kidney measures 10.3 cm x 5.2 cm x 5.6 cm. There is a normal cortex of the right kidney. The renal cortex measures 1.5 cm. There is no right renal mass or cyst. There are 3 nonobstructive right intrarenal calculi. The largest measures 3 mm x 3 mm x 2 mm. There is no right hydronephrosis. DISTAL RIGHT URETER: There is non-visualization of the distal right ureter. There is no demonstrated right ureterovesical junction calculus. There is a visualized right ureteral jet. LEFT KIDNEY: Normal location of the left kidney, which is normal in size. The left kidney measures 10.4 cm x 5.5 cm x 6.2 cm. There is a normal cortex of the left kidney. The renal cortex measures 1.8 cm. There is no left renal mass or cyst. There are 2 nonobstructive left intrarenal calculi. The larger measures 4 mm x 4 mm x 2 mm. There is no left hydronephrosis. DISTAL LEFT URETER: There is non-visualization of the distal left ureter. There is no demonstrated left ureterovesical junction calculus. There is a visualized left ureteral jet. BLADDER: The distended urinary bladder has a volume of 62.8 ml. There are no demonstrated bladder calculi. US/Kidney and Bladder IMPRESSION: Nonobstructive bilateral intrarenal calculi. No evidence of hydronephrosis. Electronically Signed: Davian Dumas MD at 15:17 EDT ,
--- NOTE | 2024-03-31 14:03 | EDS_ITS ---
HPI HPI - GI History of Present Illness Chief Complaint: Flank Pain Informant: patient Narrative Narrative: 23-year-old female presenting with left flank pain. She is 11 weeks . Pains been off and on for months, states it feels like kidney stone pain and has been on the left side. She states every couple weeks it will flareup and then it will go away and she is concerned that she has a stone that is stuck and not being able to pass. She states this time the pain has been there for the last 3 to 4 days and has been significant. Some nausea but no vomiting. Today she had abdominal discomfort across her mid abdomen, not her left flank, which was different. That and nausea, sweats, chills, she has had urinary frequency for the last few days but no gross hematuria or burning. She states right now the pain seems to have dissipated and she is feeling a lot better at this moment. Follows with Dr. Brown, she has a bladder stimulator because of incontinence that she states is not spinal cord related. She has had to have surgeries removing stones before. [facility] Medical History (Updated 03/31/24 @ 15:[address] Toby Mittal MD) Urinary incontinence Kidney stones Asthma Home Medications ?Medication ?Instructions ?Recorded ?Last Taken ?Type pnv #[id number] acid-dha 28 1 ea PO DAILY 03/31/24 Unknown History mg-975 mcg-200 mg oral powder efferv pk Allergy/AdvReac Type Severity Reaction Status Date / Time No Known Allergies Allergy Verified 03/31/24 13:25 Social History Smoking Status: Current every day smoker tobacco type: e-cigarettes ROS ROS ED Constitutional Constitutional ED: Reports chills and malaise; Denies fever(s) Eyes Eyes: Denies change in vision or diplopia ENT ENT ED: Denies rhinorrhea or sore throat Cardiovascular Cardiovascular: Denies chest pain or palpitations Respiratory/Chest Respiratory/Chest: Denies cough or dyspnea Gastrointestinal Gastrointestinal: Reports abdominal pain and nausea; Denies diarrhea or vomiting Genitourinary Genitourinary ED: Reports as per HPI, flank pain and urinary frequency; Denies dysuria, hematuria or vaginal bleeding Musculoskeletal Musculoskeletal: Reports back pain; Denies neck pain Integumentary Denies abscess or rash Neurologic Neurologic: Denies headache(s), paresthesias or weakness Psychiatric Psychiatric: Denies anxiety or suicidal thoughts EXAM Physical Exam Const Vital Signs: 03/31/24 13:23 Temperature 97.7 F L Temperature Source Temporal Pulse Rate 91 Respiratory Rate 14 Blood Pressure 136/101 H Blood Pressure Mean 112 Pulse Ox 100 Oxygen Delivery Method Room Air Positive well nourished and well developed General Appearance ED: well developed and NAD HEENT Reports moist mucous membranes normocephalic and atraumatic Eyes PERRL and EOMs intact bilaterally Neck full ROM and supple Resp normal respiratory effort and clear to auscultation bilaterally Cardio regular rate, regular rhythm and no murmurs GI non-tender and non-distended Auscultation: normoactive bowel sounds Palpation: soft Speculum Exam - Vagina: Negative for vaginal bleeding Back/Spine no CVA tenderness General Back: other FROM Extremity normal to inspection General Extremety ED: Negative for edema, pulses abnormal or tenderness General Extremity: Negative for edema or pulses abnormal Neuro oriented x3, CN's II-XII intact bilaterally and no sensory deficits noted Sensorium / Orientation: awake and alert Motor Exam: strength 5/5 throughout Skin no rashes or lesions noted and no wounds MDM MDM MDM Narrative Medical decision making narrative: Given that patient is 11 weeks , we will do an ultrasound of the kidney and bladder. Would otherwise have done a CT, patient agreement. Labs are remarkable only for hypokalemia, we gave her some potassium orally. Urine shows no signs of infection, and ultrasound of the kidneys and bladder were obtained. I reviewed the images and the report which I agree with. Basically, there is no hydronephrosis, signs of ureteral obstruction, and there are small stones in both kidneys that are nonobstructing at this time. I can see part of the uterus on the ultrasound, with a good double decidual sign. Patient is still comfortable on reexamination. She is reassured, no sign of obstructive urolithiasis at this time, and she is not in pain. She was given Zofran for residual nausea. Will discharge her home with urine strainers, advised to use for 24-48 hours to see if she strained out any stones. Lab Data Attestation: I reviewed the patient's lab results. Labs: Laboratory Results - last 24 hr 03/31/24 14:05 WBC 11.1 H RBC 3.88 L Hgb 12.6 Hct 37.7 MCV 97.2 MCH 32.5 H MCHC 33.4 RDW Std Deviation 43.8 RDW Coeff of [place] 12.3 Plt Count 291 MPV 9.4 Immature Gran % (Auto) 0.400 Neut % (Auto) 71.6 H Lymph % (Auto) 20.6 [place] % (Auto) 6.8 Eos % (Auto) 0.3 Baso % (Auto) 0.3 Absolute Neuts (auto) 8.0 H Absolute Lymphs (auto) 2.30 Nucleated RBC % 0 Sodium 136 Potassium 3.1 L Chloride 103 Carbon Dioxide 28.0 Anion Gap 5 BUN 5 L Creatinine 0.68 Estim Creat Clear Calc 115.33 Est GFR (MDRD) Af Amer 134 Est GFR (MDRD) Non-Af 111 BUN/Creatinine Ratio 7.3 L Glucose 104 Calcium 9.7 Urine Color Yellow Urine Clarity Clear Urine pH 6.5 Ur Specific [place] 1.010 Urine Protein Negative Urine Glucose (UA) Normal Urine Ketones Negative Urine Occult Blood Negative Urine Nitrite Negative Urine Bilirubin Negative Urine Urobilinogen Normal Ur Leukocyte Esterase Negative Urine RBC 0 SEEN Urine WBC 0 SEEN Ur Squamous Epith Cells 0 SEEN Urine Bacteria 0 SEEN Urine Mucus 0 SEEN Radiography Diagnostic Testing: Clinical Impression(s) from Imaging Studies Renal Ultrasound 03/31/24 14:02 IMPRESSION: Nonobstructive bilateral intrarenal calculi. No evidence of hydronephrosis. Electronically Signed: Davian Dumas MD at 15:17 EDT Reading Location ID and State: [facility] / [place] , Service support , Discharge Plan Triage Chief Complaint: Flank Pain ED Provider: Toby Mittal Dx/Rx/DC Orders Clinical Impression: Diffuse abdominal pain, Acute left flank pain, First trimester , Acute hypokalemia Instructions: ED Hypokalemia, ED Kidney Stone, Passed Prescriptions: No Action pnv #[id number] 28-975-200 mg-mcg-mg powder effervescent in packet 1 ea PO DAILY Primary Care Provider: Vincent Larson Referrals: Mary Brown MD [Med Staff - Active Staff] - As Needed Vincent Larson DO [Primary Care Provider] - Activity Restrictions/Additional Instructions: Consider straining your urine for the next 24 to 48 hours to see if you strain out any stones. Tylenol as needed for any pain. Print Language: Kyrgyz Disposition Disposition: Home, Self Care
[2024-03-31 14:25] LABS: Bacteria 0 SEEN /hpf (None Seen); Mucous, Urine 0 SEEN /hpf (<or=2+); Red Blood Cells-Urine 0 SEEN /hpf (0-5); Squamous Epithelial Cells - UA 0 SEEN /hpf (5-10); White Blood Cells 0 SEEN /hpf (0-5)
[2024-03-31 14:37] LABS: Basophil# 0.03 X10^3/uL; Basophil% 0.3 % (0-1); Color, Urine Yellow (Yellow); Eosinophil# 0.03 X10^3/uL; Eosinophils% 0.3 % (0-5); Glucose, Dipstick Normal (Normal); Hematocrit 37.7 % (37-47); Hemoglobin 12.6 g/dL (12.0-15.0); Ketone-Dipstick Negative (Negative); Leukocyte Esterase-Dipstick Negative /ul (Negative); Lymphocyte % 20.6 % (19-41); Mean Corp Hgb Conc 33.4 g/dL (32-36); Mean Corpuscular Hgb 32.5 pg (27.0-32.0); Mean Corpuscular Volume 97.2 fL (81-99); Mean Platelet Vol. 9.4 fl (6.2-12.0); Monocyte# 0.76 X10^3/uL; Monocyte% 6.8 % (0-10); NRBC Flagged by Analyzer 0 % (0-5); Neutrophil # 7.98 X10^3/uL (2.7-7.7); Neutrophil % 71.6 % (47-70); Nitrite-Dipstick Negative (Negative); Occult Blood-Urine Negative /ul (Negative); Platelet Count 291 K/mm3 (150-450); Protein-Dipstick Negative (Negative); RBC Distribution Width CV 12.3 % (11.6-14.6); RBC Distribution Width SD 43.8 fl (35.1-43.9); Red Blood Count 3.88 M/mm3 (4.2-5.4); Urine Bilirubin Dipstick Negative (Negative); Urine Clarity Clear (Clear); Urine Urobilinogen Normal (Normal); Urine pH 6.5 (5.0 - 8.0); White Blood Count 11.1 K/mm3 (4.4-11.0)
[2024-03-31 14:43] LABS: Anion Gap 5 (5-15); BUN 5 mg/dL (7-18); BUN/Creat Ratio 7.3 RATIO (10-20); Calcium,Total 9.7 mg/dL (8.5-10.1); Chloride 103 mmol/L (98-107); Creatinine, Serum 0.68 mg/dL (0.55-1.02); EST Glomerular Filtration Rate 111 mL/min (>60); Est Glom Filt Rate - Afr Amer 134 mL/min (>60); Estimated Creatinine Clearance 115.33 ml/min; Glucose 104 mg/dL (74-106); Potassium 3.1 mmol/L (3.5-5.1); Sodium Level 136 mmol/L (136-145)
[2024-03-31] MEDS: Potassium Chloride Oral Tablet 20 MEQ 40 MEQ PO (15:36)
[2024-03-31 15:40] VITALS: BP 124/77; PULSE 64; RESP 14; TEMP 37.1; O2SAT 100
== END 2024-03-31 15:40 | disposition home or self-care (01) ==
PROVIDERS: Emergency Provider Emergency Medicine; PCP Student in an Organized Health Care Education/Training Program; Visit Provider Emergency Medicine
DX: O26.891 Other specified pregnancy related conditions, first trimester (principal); Z3A.11 11 weeks gestation of pregnancy; O99.281 Endocrine, nutritional and metabolic diseases complicating pregnancy, first trimester; R10.84 Generalized abdominal pain; O99.891 Other specified diseases and conditions complicating pregnancy; O99.331 Smoking (tobacco) complicating pregnancy, first trimester; E87.6 Hypokalemia; F17.290 Nicotine dependence, other tobacco product, uncomplicated; R11.0 Nausea
CPT/HCPCS: 76770; 80048; 81001; 85025; 99283; A4216; J2405

== ENCOUNTER 2024-09-24 13:25 | Outpatient (CLI) | payer MEDICAID, SELFPAY ==
[2024-09-24 13:46] VITALS: BMI 36.6
[2024-09-24 13:51] VITALS: BP 132/79; PULSE 107; RESP 18; TEMP 36.9; O2SAT 99
[2024-09-24 16:21] VITALS: BP 124/73; PULSE 85
--- NOTE | 2024-09-25 08:15 | OB.TRI.NOTE ---
HPI - General HPI Narrative MARISSA ALCAZAR, is a 24 F who presents for equivocal with only one acceleration. PFSH PFSH Medical History (Updated 09/25/24 @ 08:18 by Blanka Javier CNM) Urinary incontinence Kidney stones Asthma Home Medications ?Medication ?Instructions ?Recorded ?Last Taken ?Type pnv #[id number] acid-dha 28 1 ea PO DAILY 03/31/24 09/15/24 09:00 History mg-975 mcg-200 mg oral powder 1 ea efferv pk ferrous sulfate 325 mg (65 mg 325 mg PO .QOD ANEMIA 09/24/24 09/23/24 09:00 History iron) tablet (Feosol) 325 mg Allergy/AdvReac Type Severity Reaction Status Date / Time No Known Allergies Allergy Verified 09/24/24 13:46 Social History Smoking Status: Current every day smoker tobacco type: e-cigarettes History Elective abortions Hx Para 1 Spontaneous abortions Hx # Term Pregnancies Ectopic pregnancies Hx # Pregnancies Multiple births # of living children NST FHR Rate Baby A Baseline: 135 Variability:: Moderate Accelerations:: 15 x 15 Decelerations:: None NST Reactive:: Yes Uterine Activity:: Irritability Assessment & Plan (1) Decreased movement: (2) 36 weeks gestation of : PLAN: Plan 1) NST reactive 2) Cervix closed and not active labor 3) D/C home
== END 2024-09-24 16:22 | disposition home or self-care (01) ==
LOC: WPOUT 13:37 → WP 13:38
PROVIDERS: PCP Student in an Organized Health Care Education/Training Program; Referring Provider Advanced Practice Midwife; Visit Provider Advanced Practice Midwife
DX: O36.8130 Decreased fetal movements, third trimester, not applicable or unspecified (principal); J45.909 Unspecified asthma, uncomplicated; F17.290 Nicotine dependence, other tobacco product, uncomplicated; Z3A.36 36 weeks gestation of pregnancy; O99.513 Diseases of the respiratory system complicating pregnancy, third trimester
CPT/HCPCS: 59025; 59050; 99221; G0378

== ENCOUNTER 2024-10-16 07:28 | Inpatient (IN) | payer MEDICAID, SELFPAY ==
[2024-10-16] VITALS (36 sets, daily range): BP systolic 93–139; BP diastolic 54–89; PULSE 64–108; RESP 14–18; TEMP 36.5–37.2; O2SAT 98–100; BMI 37.7
[2024-10-16] MEDS: Lactated Ringers 1,000 ML 50 ML IV (07:55)
[2024-10-16 08:11] LABS: Absolute Lymphocyte Count 1.92 X10^3/uL (0.83-4.51); Absolute Neutrophil Count 6.3 X10^3/uL (2.0-7.7); Basophil# 0.03 X10^3/uL; Basophil% 0.3 % (0-1); Eosinophil# 0.04 X10^3/uL; Eosinophils% 0.4 % (0-5); Hematocrit 34.6 % (37-47); Hemoglobin 11.6 g/dL (12.0-15.0); Lymphocyte # 1.92 X10^3/ul (0.83-4.51); Lymphocyte % 21.2 % (19-41); Mean Corp Hgb Conc 33.5 g/dL (32-36); Mean Corpuscular Hgb 32.9 pg (27.0-32.0); Mean Platelet Vol. 10.6 fl (6.2-12.0); Monocyte# 0.68 X10^3/uL; Monocyte% 7.5 % (0-10); NRBC Flagged by Analyzer 0 % (0-5); Neutrophil # 6.31 X10^3/uL (2.7-7.7); Neutrophil % 69.8 % (47-70); Platelet Count 272 K/mm3 (150-450); RBC Distribution Width CV 12.8 % (11.6-14.6); RBC Distribution Width SD 45.6 fl (35.1-43.9); Red Blood Count 3.53 M/mm3 (4.2-5.4); White Blood Count 9.1 K/mm3 (4.4-11.0)
[2024-10-16] MEDS: Oxytocin 15 Units/NS 250ml 15 UNITS/250 ML IV.SOLN 2 UNITS IV (08:32)
[2024-10-16 08:59] LABS: Syphilis Antibodies Non-reactive
--- NOTE | 2024-10-16 10:53 | PCM.HP.OB ---
HPI - General General Date of Admission: 10/16/24 Date of Service: 10/16/24 Chief Complaint: IOL HPI Narrative MARISSA ALCAZAR, is a 24 F who presents for elective IOL. GBS negative Maternal Data Information Final UJ: 10/18/24 Gestational age: 39+5 PFSH PFSH Medical History depression Depression Headache Urinary incontinence Kidney stones Asthma Home Medications ?Medication ?Instructions ?Recorded ?Last Taken ?Type pnv #[id number] acid-dha 28 1 ea PO DAILY preg 03/31/24 09/15/24 09:00 History mg-975 mcg-200 mg oral powder 1 ea efferv pk ferrous sulfate 325 mg (65 mg 325 mg PO .QOD ANEMIA 09/24/24 09/23/24 09:00 History iron) tablet (Feosol) 325 mg Allergy/AdvReac Type Severity Reaction Status Date / Time No Known Allergies Allergy Verified 10/16/24 08:19 Surgical History History of surgery Social History Smoking Status: Never smoker History 2 Elective abortions Hx Para 1 Spontaneous abortions Hx # Term Pregnancies Ectopic pregnancies Hx # Pregnancies Multiple births # of living children NST FHR Rate Baby A Baseline: 130 Variability:: Moderate Accelerations:: 15 x 15 Decelerations:: None NST Reactive:: Yes FHR Category:: Category I Uterine Activity:: irregular ROS Constitutional Constitutional: Denies fatigue, fever(s) or malaise Eyes Eyes: Denies change in vision ENT HEENT: Denies dizziness or headache(s) Cardiovascular Cardiovascular: Denies chest pain, dyspnea or lightheadedness Respiratory/Chest Respiratory/Chest: Denies cough or dyspnea Gastrointestinal Gastrointestinal: Denies change in bowel habits Genitourinary Genitourinary: Denies burning urination or genital lesions Integumentary Integumentary: Denies rash Neurologic Neurologic: Denies confusion, dizziness, headache(s), numbness or weakness Vital Signs Vital Signs Vital Signs: 10/16/24 08:14 10/16/24 08:14 12/28/24 08:14 Temperature 99.0 F Temperature Source Temporal Pulse Rate Respiratory Rate 16 Blood Pressure BP Systolic BP Diastolic 10/16/24 08:16 10/16/24 08:16 10/16/24 09:05 Temperature Temperature Source Pulse Rate 97 Respiratory Rate Blood Pressure 119/76 111/62 BP Systolic 119 111 BP Diastolic 76 62 10/16/24 09:05 10/16/24 10:19 10/16/24 10:19 Temperature Temperature Source Pulse Rate 87 84 Respiratory Rate Blood Pressure 115/65 BP Systolic 115 BP Diastolic 65 Weight Weight: 90.6 kg Body Mass Index (BMI) 37.7 Physical Exam Const alert and no apparent distress General Appearance: cooperative HEENT normocephalic Resp normal respiratory effort GI soft to palpation GI Narrative: gravid, nontender, appropriate for gestational age Extremity no calf tenderness General Extremity: edema Skin no wounds Rashes: No rashes noted Psych activity/motor behavior normal Labs Labs Labs: Blood Type O POSITIVE Antibody Screen NEGATIVE Hct 34.6 % (37-47) L Hgb 11.6 g/dL (12.0-15.0) L Syphilis Total Ab Non-reactive Rhogam given: No Assessment & Plan (1) 39 weeks gestation of : (2) Elective induction of labor planned: PLAN: Plan GBS negative Pitocin per protocol Epidural prn
--- NOTE | 2024-10-16 18:27 | PN.OBGYN_ITS ---
Subjective Subjective 2-3 cm. Unable to AROM. Continue Pitocin. Epidural PRN Cat I Objective Data Objective Data Vital Signs: Vital Signs Temp Pulse Resp BP 99.0 F 93 14 132/83 H 10/16/24 08:14 10/16/24 17:38 10/16/24 12:06 10/16/24 17:38 Weight: 90.6 kg Body Mass Index (BMI) 37.7 Intake & Output: Intake and Output for Last 24 Hours 10/14/24 10/15/24 10/16/24 23:59 23:59 23:59 Intake Total 83.41 / 83.41 Balance 83.41 / 83.41 Lab / Micro Data 10/16/24 07:55 Labs: Laboratory Results - last 24 hr 10/16/24 07:55: WBC 9.1, RBC 3.53 L, Hgb 11.6 L, Hct 34.6 L, MCV 98.0, MCH 32.9 H, MCHC 33.5, RDW Std Deviation 45.6 H, RDW Coeff of [place] 12.8, Plt Count 272, MPV 10.6, Immature Gran % (Auto) 0.800, Neut % (Auto) 69.8, Lymph % (Auto) 21.2, [place] % (Auto) 7.5, Eos % (Auto) 0.4, Baso % (Auto) 0.3, Absolute Neuts (auto) 6.3, Absolute Lymphs (auto) 1.92, Nucleated RBC % 0, Syphilis Total Ab Non- reactive, Blood Type O POSITIVE, Antibody Screen NEGATIVE NST FHR Rate Baby A Baseline: 140 Variability:: Moderate Accelerations:: 15 x 15 Decelerations:: None NST Reactive:: Yes FHR Category:: Category I Assessment & Plan (1) 39 weeks gestation of : (2) Elective induction of labor planned: PLAN: Plan Continue Pitocin per protocol Arom when able
[2024-10-16] MEDS: Lactated Ringers 1,000 ML 999 ML IV (19:48)
[2024-10-16] MEDS: fentaNYL-bupivacaine (epidural) 100 ML BAG EPIDURAL (20:50)
--- NOTE | 2024-10-16 21:21 | PN.OBGYN_ITS ---
Subjective Subjective AROM for cleat fluid. 3-4 cm Cat I Epidural in place Objective Data Objective Data Vital Signs: Vital Signs Temp Pulse Resp BP Pulse Ox 98.1 F 83 16 136/89 H 98 10/16/24 20:59 10/16/24 21:13 10/16/24 21:10 10/16/24 21:13 10/16/24 21:09 Weight: 90.6 kg Body Mass Index (BMI) 37.7 Intake & Output: Intake and Output for Last 24 Hours 10/14/24 10/15/24 10/16/24 23:59 23:59 23:59 Intake Total 1765.72 / 1765.72 Balance 1765.72 / 1765.72 Lab / Micro Data 10/16/24 07:55 Labs: Laboratory Results - last 24 hr 10/16/24 07:55: WBC 9.1, RBC 3.53 L, Hgb 11.6 L, Hct 34.6 L, MCV 98.0, MCH 32.9 H, MCHC 33.5, RDW Std Deviation 45.6 H, RDW Coeff of [place] 12.8, Plt Count 272, MPV 10.6, Immature Gran % (Auto) 0.800, Neut % (Auto) 69.8, Lymph % (Auto) 21.2, [place] % (Auto) 7.5, Eos % (Auto) 0.4, Baso % (Auto) 0.3, Absolute Neuts (auto) 6.3, Absolute Lymphs (auto) 1.92, Nucleated RBC % 0, Syphilis Total Ab Non- reactive, Blood Type O POSITIVE, Antibody Screen NEGATIVE Assessment & Plan (1) Elective induction of labor planned: (2) 39 weeks gestation of : PLAN: Plan Expectant management
[2024-10-16] MEDS: Lactated Ringers 1,000 ML 200 ML IV (21:30)
[2024-10-17] VITALS (37 sets, daily range): BP systolic 101–161; BP diastolic 54–90; PULSE 70–132; RESP 14–16; TEMP 36.8–38.4; O2SAT 83–100
[2024-10-17] MEDS: 0.9% Saline Lock 10 ML Syringe IV (02:53)
[2024-10-17] MEDS: Ondansetron 4 MG/2 ML Vial IV (02:53)
[2024-10-17] MEDS: Lactated Ringers 1,000 ML 200 ML IV ×2 (03:22→10:06)
[2024-10-17] MEDS: fentaNYL-bupivacaine (epidural) 100 ML BAG EPIDURAL ×2 (04:44→11:00)
--- NOTE | 2024-10-17 07:26 | PCM.PN.OB ---
Subjective Subjective FSE placed without difficulty. Intermittent Cat2. 7 m/90/-1 Objective Data Objective Data Vital Signs: Vital Signs Temp Pulse Resp BP Pulse Ox 98.7 F 73 16 138/75 H 98 10/17/24 06:20 10/17/24 07:22 10/17/24 06:20 10/17/24 06:20 10/17/24 07:22 Weight: 90.6 kg Body Mass Index (BMI) 37.7 Intake & Output: Intake and Output for Last 24 Hours 10/15/24 10/16/24 10/17/24 23:59 23:59 23:59 Intake Total 1936.39 / 1936.39 1858.10 / 1858.10 Output Total 650 / 650 Balance 1286.39 / 1286.39 1858.10 / 1858.10 Lab / Micro Data 10/16/24 07:55 Labs: Laboratory Results - last 24 hr 10/16/24 07:55: WBC 9.1, RBC 3.53 L, Hgb 11.6 L, Hct 34.6 L, MCV 98.0, MCH 32.9 H, MCHC 33.5, RDW Std Deviation 45.6 H, RDW Coeff of [place] 12.8, Plt Count 272, MPV 10.6, Immature Gran % (Auto) 0.800, Neut % (Auto) 69.8, Lymph % (Auto) 21.2, [place] % (Auto) 7.5, Eos % (Auto) 0.4, Baso % (Auto) 0.3, Absolute Neuts (auto) 6.3, Absolute Lymphs (auto) 1.92, Nucleated RBC % 0, Syphilis Total Ab Non-reactive, Blood Type O POSITIVE, Antibody Screen NEGATIVE NST FHR Rate Baby A Baseline: 135 Variability:: Moderate Accelerations:: 15 x 15 Decelerations:: Late and Variable FHR Category:: Category II Uterine Activity:: q 3 Assessment & Plan (1) Elective induction of labor planned: (2) 39 weeks gestation of :
--- NOTE | 2024-10-17 10:59 | PCM.PN.OB ---
Subjective Subjective 9 cm/90/0. Starting to feel pressure. Intermittent Cat 2. Good variabilty. Objective Data Objective Data Vital Signs: Vital Signs Temp Pulse Resp BP Pulse Ox 99.1 F 80 16 110/70 100 10/17/24 10:00 10/17/24 10:00 10/17/24 10:00 10/17/24 10:00 10/17/24 08:59 Weight: 90.6 kg Body Mass Index (BMI) 37.7 Intake & Output: Intake and Output for Last 24 Hours 10/15/24 10/16/24 10/17/24 23:59 23:59 23:59 Intake Total 1936.39 / 1936.39 2049.23 / 2049.23 Output Total 650 / 650 900 / 900 Balance 1286.39 / 1286.39 1149.23 / 1149.23 Lab / Micro Data 10/16/24 07:55 NST FHR Rate Baby A Baseline: 125 Variability:: Moderate Accelerations:: 15 x 15 Decelerations:: Early, Late and Variable FHR Category:: Category II Uterine Activity:: q2 Assessment & Plan (1) Elective induction of labor planned: (2) 39 weeks gestation of : PLAN: Plan Expect to begin pushing in about an hour
[2024-10-17] MEDS: Oxytocin 15 Units/NS 250ml 15 UNITS/250 ML IV.SOLN 334 UNITS IV (13:10)
--- NOTE | 2024-10-17 13:25 | EX.PCM.OBVAG ---
Assessment & Plan (1) (spontaneous vaginal delivery): Maternal Data Information Final JU: 10/18/24 Gestational age: 39+6 Vaginal Delivery Maternal Presentation Maternal Presentation: Elective Induction Type of Induction: Pitocin Vaginal Delivery Information Procedure Performed: Spontaneous Vaginal Delivery Surgeon/Practitioner: Belen Edwards Date of Procedure: 10/17/24 Pre-Procedure Diagnosis: term Post-Procedure Diagnosis: Type of anesthesia: Epidural Estimated Blood Loss: 150 cc Time of Delivery: 13:07 Findings Description of procedure: Elective IOL. Pitocin and AROM. Once complete patient pushed for about an hour over an intact perineum. Delivered OA. The shoulders delivered easily followed by the rest of the body. The cried upon delivery. The cord was clamped and cut after 1 minute. Cord blood was collected. The placenta delivered with gentle traction. There was a small laceration on the left inner labia. Repaired with 3-0 vicryl rapide. All sponge, needle and instrument counts were correct. Presentation: Vertex and JC Amniotic Membrane Rupture Type: Artificial Amniotic Fluid Description: Clear Placental Delivery Description: Spontaneous Placenta Disposition: [facility] Cord Vessel Description: 3 Vessels Cord Entanglement: None Infant A Gender: Male (1 minute): 9 (5 minute): 9 Delayed Cord Clamping: Yes Technical Support Professional soil specialist: No Post Vaginal Deli Medications given after delivery: IV Pitocin Episiotomy Description: None Laceration: None (left labia) Complication Complications: No
[2024-10-17] MEDS: Acetaminophen 500 MG Tablet 1000 MG PO ×2 (13:37→20:06)
[2024-10-17] MEDS: Oxytocin 15 Units/NS 250ml 15 UNITS/250 ML IV.SOLN 83 UNITS IV (14:09)
[2024-10-17] MEDS: Ibuprofen 600 MG Tablet PO ×2 (14:43→21:41)
[2024-10-17 15:29] LABS: Mucous, Urine 0 SEEN /hpf (<or=2+)
[2024-10-17 15:30] LABS: Color, Urine Yellow (Yellow); Glucose, Dipstick Normal (Normal); Ketone-Dipstick Negative (Negative); Leukocyte Esterase-Dipstick 25 /ul (Negative); Nitrite-Dipstick Negative (Negative); Occult Blood-Urine 250 /ul (Negative); Protein-Dipstick 30 mg/dl (Negative); Specific Gravity, Urine 1.005 (1.002-1.030); Urine Bilirubin Dipstick Negative (Negative); Urine Clarity Sl. Cloudy (Clear); Urine Urobilinogen Normal (Normal)
[2024-10-17 15:40] LABS: Red Blood Cells-Urine > 100 SEEN /hpf (0-5); Squamous Epithelial Cells - UA 0-5 SEEN /hpf (5-10); White Blood Cells 5-10 SEEN /hpf (0-5)
[2024-10-17 15:43] LABS: Bacteria 1+ /hpf (None Seen)
[2024-10-18] VITALS (8 sets, daily range): BP systolic 106–126; BP diastolic 55–81; PULSE 73–89; RESP 16; TEMP 36.3–36.7; O2SAT 98–99
[2024-10-18] MEDS: Ibuprofen 600 MG Tablet PO ×2 (05:01→11:50)
[2024-10-18] MEDS: Acetaminophen 500 MG Tablet 1000 MG PO (05:02)
--- NOTE | 2024-10-18 06:46 | PN.OBGYN_ITS ---
Subjective Subjective Doing well. Ambulating and voiding without difficulty. Mild lochia. Breast feeding. Objective Data Objective Data Vital Signs: Vital Signs Temp Pulse Resp BP Pulse Ox O2 Del Method 97.4 F L 82 16 113/55 L 98 Room Air 10/18/24 04:55 10/18/24 05:04 10/18/24 04:55 10/18/24 05:04 10/18/24 05:03 10/18/24 00:53 Oxygen Delivery Method Room Air Weight: 90.6 kg Body Mass Index (BMI) 37.7 Intake & Output: Intake and Output for Last 24 Hours 10/16/24 10/17/24 10/18/24 23:59 23:59 23:59 Intake Total 1936.39 / 1936.39 3182.89 / 3182.89 Output Total 650 / 650 2100 / 2100 Balance 1286.39 / 1286.39 1082.89 / 1082.89 Lab / Micro Data 10/16/24 07:55 Labs: Laboratory Results - last 24 hr 10/17/24 15:15: Urine Color Yellow, Urine Clarity Sl. Cloudy, Urine pH 7.0, Ur Specific [place] 1.005, Urine Protein 30 H, Urine Glucose (UA) Normal, Urine Ketones Negative, Urine Occult Blood 250 H, Urine Nitrite Negative, Urine Bilirubin Negative, Urine Urobilinogen Normal, Ur Leukocyte Esterase 25 H, Urine RBC > 100 SEEN, Urine WBC 5-10 SEEN, Ur Squamous Epith Cells 0-5 SEEN, Urine Bacteria 1+, Urine Mucus 0 SEEN ROS Constitutional Constitutional: Denies fatigue, fever(s) or malaise Eyes Eyes: Denies change in vision ENT HEENT: Denies dizziness or headache(s) Cardiovascular Cardiovascular: Denies chest pain, dyspnea or lightheadedness Respiratory/Chest Respiratory/Chest: Denies cough or dyspnea Gastrointestinal Gastrointestinal: Denies change in bowel habits Genitourinary Genitourinary: Denies burning urination or genital lesions Integumentary Integumentary: Denies rash Neurologic Neurologic: Denies confusion, dizziness, headache(s), numbness or weakness Physical Exam Const alert and no apparent distress Narrative: Fundus firm, below umbilicus. Assessment & Plan (1) (spontaneous vaginal delivery): PLAN: Plan desires discharge this afternoon.
--- NOTE | 2024-10-18 06:49 | PCM.DC.SUM ---
Providers Date of Admission: 10/16/24 Date of Discharge: 10/18/24 Primary Care Physician: Dr. Vincent Larson DO Reason For Visit: INDUCTION Diagnosis Discharge Diagnosis (1) (spontaneous vaginal delivery): Status: Acute Code(s): O80 - Encounter for full-term uncomplicated delivery Plan desires discharge this afternoon. Medications at Discharge Home Medications pnv #[id number] acid-dha 28 mg-975 mcg-200 mg oral powder efferv pk 1 ea PO DAILY preg 03/31/24 ferrous sulfate 325 mg (65 mg iron) tablet (Feosol) 325 mg PO .QOD ANEMIA 09/24/24 Hospital Course Operations None Procedures None Summary of Care Provided Minutes Spent on Discharge: 20 Hospital Course: Elective IOL. without complication. Normal course. Breast feeding. Physical Exam Const alert and no apparent distress Narrative: Fundus firm, below umbilicus. Weight / BMI Weight Weight: 90.6 kg Body Mass Index (BMI) 37.7 ABG / Lab / Microbiology Data 10/16/24 07:55 Laboratory: Laboratory Results - last 24 hr 10/17/24 15:15: Urine Color Yellow, Urine Clarity Sl. Cloudy, Urine pH 7.0, Ur Specific [place] 1.005, Urine Protein 30 H, Urine Glucose (UA) Normal, Urine Ketones Negative, Urine Occult Blood 250 H, Urine Nitrite Negative, Urine Bilirubin Negative, Urine Urobilinogen Normal, Ur Leukocyte Esterase 25 H, Urine RBC > 100 SEEN, Urine WBC 5-10 SEEN, Ur Squamous Epith Cells 0-5 SEEN, Urine Bacteria 1+, Urine Mucus 0 SEEN D/C Instructions May resume sexual activity in: 6 weeks DC O2, CPAP, BIPAP Needs Home O2 Discharge instructions: No Please Follow Up With: Natasha Martínez MD When: Follow up with our office in 1-2 and 6 weeks or as needed. [phone] Meaningful Use Info Meaningful Use Meaningful Use Diagnoses (Choose all that apply): None applicable Ischemic Stroke Statin Dosing Therapy Reference: STATIN DOSE THERAPY REFERENCE: * Patients > 75 years receive moderate or high dose statin therapy. * Patients 75 years or YOUNGER should receive HIGH intensity statin dose unless contraindicated. You will be required to document reason for non-treatment if statin daily dose does not meet guidelines. HIGH DOSE STATIN THERAPY DAILY Atorvastatin > than or = to 40 mg Rosuvastatin > than or = to 20 mg Amlodipine + Atorvastatin > than or = to 2.5/40 mg Ezetimibe + Simvastatin 10/80 mg Simvastatin 80mg Discharge Plan Admission Admit Date/Time: 10/16/24 07:28 Primary Reason for Your Visit: delivery Attending Provider: Belen Edwards Primary Care Provider: Vincent Larson Discharge Orders/Prescriptions Prescriptions: Continued pnv #[id number] [id number] mg-mcg-mg powder effervescent in packet 1 ea PO DAILY ferrous sulfate [Feosol] 325 mg (65 mg iron) tablet 325 mg PO .QOD Referrals / Follow Up: Vincent Larson DO [Primary Care Provider] - Disposition Disposition (needs filled in before D/C Order can be placed): Home, Self Care
--- NOTE | 2024-10-18 12:45 | CASEMGMT ---
Social Work Assessment Labor and Delivery Unit Patient Address: [address] [place] [address] Phone number: [phone] Date of Referral: 10/18/24 Time of Referral:? 49 Referred By: Dr. Edwards Date of Intervention: ??10/18/24 Time of Intervention:? 1200 Reason for Referral:? history of depression Sw completed chart review and acknowledges social work consult due to maternal mental health history. Sw presented to bedside and introduced self to mother of baby (MOB- Sharmila) and father of baby (FOB- Yfn). Sw explained reason for sw involvement and completed psychosocial assessment. History obtained from: medical records, MOB and FOB. Household composition: Currently residing in the home is MOB, FOSkyler, FELIZ's older son, Phillip and baby when ready for discharge. Parents deny any issues or concerns with housing. Patient's parent/guardian status:? ?MOB states that she and GENESIS met at a social gathering with mutual friends and have been together for 15 months. baby is first baby for FOB, second for MOB. No concerns reported of domestic violence or intimate partner violence. Medical History: ?FELIZ is 24 year old female who is 2, para 1- now 2 following labor and delivery of . FELIZ received routine care during with [facility]. FELIZ presented to hospital for scheduled induction of labor on 10/16/24. FELIZ delivered baby via vaginal delivery at 39 weeks gestation on 10/17/24. Baby boy, named Slick Parada, was born weighing 8lb and apgars of 8 and 9 at one and five minutes of life, respectfully. FELIZ states that she is breast feeding and baby will be followed by Dr. Ojeda. Educational Status:? Both parents graduated from high school, no advanced education. Parents deny problems with reading, learning or comprehension. 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 MOB states that she was babysitting, but has stopped due to having baby. Supplies: Parents report to obtaining all necessary baby supplies, including: car seat, safe sleep space, clothes diapers and wipes. Childcare/Caregiver(s):? MOB will be the primary caregiver to baby Transportation:?? Both parents have their drivers license and reliable means of transportation, no barriers at this time. Programs/Agencies Involved: ?MOB is connected to insurance through [employer] ([employer]), [employer] and [employer]. ?? Children Services/Legal Issues:??No history of children services involvement, no issues or concerns warranting referral to be made at this time. ? Behavioral Health Issues: ??Mental Health History:??FOSkyler denies mental health history. MOB states that she has depression at baseline, and did struggle with depression following the delivery of her first baby. MOB states that there was a point in time during her last period where she had thoughts of hurting herself, without intent or plan. MOB states that she started medication, but felt as though the medication exacerbated her symptoms. MOB did get connected to counseling at [facility] and still sees her therapist now. FELIZ completed Norris Depression Scale, her score was a 13, meeting threshold for anxiety and depression. Sw provided support and education to MOB. MOB states that although her score is elevated she feels okay, and feels more prepared during this period than her first. MOB states that she has a lot of support this time, and people that she is able to talk to. ? Substance Use History: Parents deny substance use history prior to and during . ?? Family History: MOB states that her parents and her brother have history of addiction and significant substance use history. MOB states that she is mindful of this and that is why she does not drink or use drugs. Parents encouraged to use healthy and safe coping skills opposed to seeking comfort from drugs or alcohol. ? Drug Screens: No drug screens observed during chart review. Family/Social Stressors:? Parents deny any issues, concerns or stressors at this time. Support Systems: MOB states that her brother and his girlfriend are her biggest supports. MOB states that although her brother has history with substance, MOB reports that he is sober now. Depression/Shaken Baby/Safe Sleeping:Sw educated parents on signs and symptom of baby blues and mood and anxiety disorders to be mindful of during this period. FOB states that he has heard these terms, and thinks he would be able to recognize if MOB were struggling. FOB states that he does not know if he would know how to help MOB. Sw discussing ways that FOB could offer support to MOB if he were struggling. MOB states that she is open to talking to her outpatient counselor once a week or a couple of times a month. Sw educated parents on shaken baby prevention and ABCs of safe sleep, parents express understanding. ASSESSMENT:? MOB and baby admitted following labor and delivery of . MOB with mental health history positive of depression and depression. MOB states that she has more supports in place following this delivery. MOB states that all circumstances of her life are better than they were when she had her first son. MOB understands what signs and symptoms to be on the lookout for. MOB states that she has tried two psychotropic medications in the past, and neither of them were effective. MOB states hat along with psychotherapy she may be willing to try medication again as a preventative measure during this period. MOB [place] score was already at 13. MOB observed to provide appropriate hands on care to baby. PLAN:?? No other services requested or indicated. MOB and baby to be discharged when medically ready. Parents were provided literature regarding: signs and symptoms of baby blues and mood and anxiety disorders, Help Me Grow, shaken baby prevention, ABCs of safe sleep and a list of county resources that are available for them should any needs present themselves. Emely Sanchez, ENGAGEMENT SPECIALIST, PARASITOLOGY TEACHER
== END 2024-10-18 15:30 | disposition home or self-care (01) | DRG 560 ==
PROVIDERS: Admitting Provider Obstetrics & Gynecology; PCP Student in an Organized Health Care Education/Training Program; Referring Provider Obstetrics & Gynecology; Visit Provider Obstetrics & Gynecology
DX: O76 Abnormality in fetal heart rate and rhythm complicating labor and delivery (principal); O70.0 First degree perineal laceration during delivery; Z37.0 Single live birth; Z3A.39 39 weeks gestation of pregnancy
CPT/HCPCS: 59025; 59050; 81001; 85025; 86780; 86850; 86900; 86901; 87086; 99221; A4216; G0378; J2405